=== PATIENT | female | born 1950 | race Two or more races ===

== ENCOUNTER 2018-02-24 12:21 | Emergency (ER) | payer MEDICAID ==
[~2018-02-24] VITALS: Ht 157.5 cm; Wt 76.4 kg
[2018-02-24 12:56] VITALS: BP 159/90
[2018-02-24] MEDS ORDERED: pseudoephedrine 30mg tablet PO ONE (13:40)
== END 2018-02-24 14:04 | disposition home or self-care (01) ==
LOC: ER 12:21
DX: J06.9 Acute upper respiratory infection, unspecified (principal); Z56.0 Unemployment, unspecified
CPT/HCPCS: 99282

== ENCOUNTER 2019-03-07 14:22 | Emergency (ER) | payer MEDICARE, MEDICAID ==
[~2019-03-07] VITALS: Ht 157.5 cm; Wt 79.5 kg
[2019-03-07 14:50] VITALS: BP 157/76
[2019-03-07] MEDS ORDERED: BENZ-16 PO (15:22)
[2019-03-07] MEDS ORDERED: AZIT250T PO (15:22)
--- NOTE | 2019-03-07 15:27 | NUR ---
Pt seen, assessed and treated by provider. Discharge performed by RN.
== END 2019-03-07 15:34 | disposition home or self-care (01) ==
LOC: ER 14:22
DX: J06.9 Acute upper respiratory infection, unspecified (principal); Z56.0 Unemployment, unspecified; Z79.899 Other long term (current) drug therapy
CPT/HCPCS: 99283

== ENCOUNTER 2024-02-05 13:29 | Inpatient (IN) | payer MEDICARE, MEDICAID ==
[~2024-02-05] VITALS: Ht 157.5 cm; Wt 69.1 kg
[~2024-02-05 13:29] MED LIST: AZIT250T PO; PANT20TA18 PO
[2024-02-05 14:00] LABS: BASOPHILS # (AUTO) 0.1 X10'3 (0-0.2); BASOPHILS % (AUTO) 0.8 % (0-1); EOSINOPHILS # (AUTO) 0.5 X10'3 (0-0.9); EOSINOPHILS % (AUTO) 6.5 % (0-6); HEMATOCRIT 37.5 % (35.0-45.0); LYMPHOCYTES % (AUTO) 13.3 % (21-51); MEAN CORPUSCULAR HEMOGLOBIN 27.1 PG (27.0-31.0); MEAN CORPUSCULAR VOLUME 84.6 FL (78-98); MEAN PLATELET VOLUME 7.7 FL (7.4-10.4); MONOCYTES # (AUTO) 0.7 X10'3 (0-0.9); MONOCYTES % (AUTO) 9.4 % (2-12); NEUTROPHILS # (AUTO) 5.5 X10'3 (1.8-7.7); PLATELET COUNT 297 X10'3 (140-440); RED BLOOD COUNT 4.43 X10'6 (4.20-5.60); RED CELL DISTRIBUTION WIDTH 14.4 % (11.5-14.5); WHITE BLOOD COUNT 7.9 X10'3 (4.5-11.0)
[2024-02-05 14:37] LABS: ALBUMIN 3.7 G/DL (3.4-5.0); ANION GAP 4 (8-16); BLOOD UREA NITROGEN 15 MG/DL (7-18); BUN/CREATININE RATIO 16.3 (10.0-20.0); CALCIUM 8.5 MG/DL (8.5-10.1); CHLORIDE 103 MMOL/L (99-107); CREATININE 0.92 MG/DL (0.40-0.90); GLUCOSE 113 MG/DL (70-104); PRO BRAIN NATRIURETIC PEPTIDE 155 PG/ML (0-125); SODIUM 138 MMOL/L (135-145); TOTAL CARBON DIOXIDE 30.9 MMOL/L (24-32); eCRCL 44 ML/MIN; eGFR 60 ML/MIN
[2024-02-05 15:35] VITALS: PULSE 87; RESP 25; O2SAT 92
[2024-02-05] MEDS: ipratropium/albuterol 3ml nebule NEB STA (15:35)
[2024-02-05 15:40] VITALS: PULSE 86; RESP 18
[2024-02-05] MEDS: dexamethasone sod phosphate 10mg/ml inj IM STA (16:29)
[2024-02-05] MEDS ORDERED: acetaminophen 325mg tablet PO PRN ×2 (17:50)
[2024-02-05] MEDS ORDERED: morphine 2 MG/ML inj. syringe IV PRN (17:50)
[2024-02-05] MEDS ORDERED: magnesium Cl slow-release 64mg tablet PO PRN (17:50)
[2024-02-05] MEDS ORDERED: potassium Cl 40MEQ/1/2NS 520ml 520 ML IV PRN (17:50)
[2024-02-05] MEDS ORDERED: HYDROcodone/acetaminophen 5mg/325mg tablet PO PRN (17:50)
[2024-02-05] MEDS ORDERED: magnesium sulf-water 4G/100mL 100 ML IV PRN (17:50)
[2024-02-05] MEDS ORDERED: potassium Cl 20 mEq SR tablet PO PRN ×2 (17:50)
[2024-02-05] MEDS ORDERED: magnesium sulf-water 2g/50mL 50 ML IV PRN (17:50)
[2024-02-05] MEDS ORDERED: ondansetron/PF 4mg/2ml inj IV PRN (17:50)
[2024-02-05] MEDS: ipratropium/albuterol 3ml nebule NEB PRN (17:55)
[2024-02-05 17:56] VITALS: PULSE 80; RESP 22; O2SAT 93
[2024-02-05 18:06] VITALS: PULSE 84; RESP 18
[2024-02-05] MEDS ORDERED: iohexol 300mg/ml 100ml inj. ONE (18:21)
[2024-02-05 18:59] LABS: D-DIMER 1.59 MG/L FEU (0-0.50)
[2024-02-05] MEDS: methylPREDNISolone sod succ 125mg/2ml vial IV SCH (19:30)
[2024-02-05] MEDS: albuterol 2.5 MG/3 ML nebule NEB SCH (19:30)
[2024-02-05] MEDS: CefTRIAXone 2gm/D5W 50ml BAG 50 ML IV SCH (19:31)
[2024-02-05 19:34] LABS: ABG BASE EXCESS 2.4 mmol/L (-2.0-3.0); ABG HCO3 26.2 mmol/L (21.0-28.0); ABG OXYGEN SATURATION 94.5 % (94.0-98.0); ABG PCO2 (T) 38.2 mmHg (32.0-45.0); ABG PH (T) 7.455 (7.350-7.450); ALLEN'S TEST POSITIVE; FCOHb 0.3 % (0.5-1.5); FHHb 5.5 % (0.0-5.0); FLOW 3 L/min; FMetHb 0.1 % (0.0-1.5); FO2Hb 94.1 % (94.0-98.0); MODE NASAL CANNULA; PATIENT TEMPERATURE 37.3; TOTAL HEMOGLOBIN 12.5 G/dl (12.0-16.0)
[2024-02-05] MEDS: heparin, porcine 5000 units/ml vial SQ SCH (20:30)
[2024-02-05 22:00] VITALS: BP 129/58; PULSE 71; RESP 20; TEMP 97.9; O2SAT 92
[2024-02-05 23:00] VITALS: RESP 20; O2SAT 92
[2024-02-06] VITALS (15 sets, daily range): BP systolic 136–153; BP diastolic 49–71; PULSE 73–90; RESP 18–21; TEMP 97.7–100; O2SAT 92–99
[2024-02-06] MEDS ORDERED: albuterol 2.5 MG/3 ML nebule NEB PRN (06:05)
[2024-02-06 07:14] LABS: BASOPHILS % (AUTO) 0.3 % (0-1); EOSINOPHILS % (AUTO) 0 % (0-6); HEMATOCRIT 35.9 % (35.0-45.0); HEMOGLOBIN 11.7 g/dl (12.0-16.0); LYMPHOCYTES # (AUTO) 0.5 X10'3 (1.1-4.8); LYMPHOCYTES % (AUTO) 7.6 % (21-51); MEAN CORPUSCULAR HEMOGLOBIN 27.5 PG (27.0-31.0); MEAN CORPUSCULAR HGB CONC 32.5 g/dL (33.0-36.5); MEAN CORPUSCULAR VOLUME 84.6 FL (78-98); MEAN PLATELET VOLUME 8.3 FL (7.4-10.4); MONOCYTES # (AUTO) 0.1 X10'3 (0-0.9); MONOCYTES % (AUTO) 2.1 % (2-12); NEUTROPHILS # (AUTO) 6.3 X10'3 (1.8-7.7); PLATELET COUNT 311 X10'3 (140-440); RED BLOOD COUNT 4.25 X10'6 (4.20-5.60); RED CELL DISTRIBUTION WIDTH 14.3 % (11.5-14.5)
[2024-02-06 07:55] LABS: ALANINE AMINOTRANSFERASE 14 U/L (12-78); ALBUMIN 3.4 G/DL (3.4-5.0); ALBUMIN/GLOBULIN RATIO 0.8 (1.1-1.5); ALKALINE PHOSPHATASE 104 IU/L (46-116); ANION GAP 6 (8-16); ASPARTATE AMINO TRANSFERASE 8 U/L (10-37); BILIRUBIN,TOTAL 0.5 MG/DL (0.1-1.0); BLOOD UREA NITROGEN 18 MG/DL (7-18); BUN/CREATININE RATIO 23.7 (10.0-20.0); CALCIUM 8.8 MG/DL (8.5-10.1); CHLORIDE 104 MMOL/L (99-107); CREATININE 0.76 MG/DL (0.40-0.90); GLUCOSE 139 MG/DL (70-104); POTASSIUM 4.7 MMOL/L (3.5-5.1); SODIUM 140 MMOL/L (135-145); TOTAL PROTEIN 7.8 G/DL (6.4-8.2); eCRCL 53 ML/MIN; eGFR 75 ML/MIN
[2024-02-06] MEDS: pantoprazole 40mg Tablet.DR PO SCH (08:39)
[2024-02-06] MEDS ORDERED: FLU VACC TS2024-25(6MOS UP)/PF 45 MCG/0.5 ML SYRINGE IMVAC ONE (09:20)
[2024-02-06] MEDS: guaiFENesin ER 600mg tablet PO SCH (13:37)
[2024-02-06] MEDS: albuterol 2.5 MG/3 ML nebule NEB SCH (15:27)
[2024-02-06] MEDS: CefTRIAXone 2gm/D5W 50ml BAG 50 ML IV SCH (20:25)
[2024-02-06] MEDS: methylPREDNISolone sod succ/PF 40mg inj. IV SCH (20:30)
[2024-02-07] VITALS (16 sets, daily range): BP systolic 127–157; BP diastolic 50–97; PULSE 69–90; RESP 15–26; TEMP 97.2–98.6; O2SAT 90–96
[2024-02-07 06:21] LABS: BASOPHILS % (AUTO) 0.2 % (0-1); EOSINOPHILS % (AUTO) 0 % (0-6); HEMATOCRIT 37.8 % (35.0-45.0); LYMPHOCYTES # (AUTO) 0.8 X10'3 (1.1-4.8); LYMPHOCYTES % (AUTO) 5.4 % (21-51); MEAN CORPUSCULAR HGB CONC 31.7 g/dL (33.0-36.5); MEAN CORPUSCULAR VOLUME 85.3 FL (78-98); MEAN PLATELET VOLUME 8.7 FL (7.4-10.4); MONOCYTES # (AUTO) 0.6 X10'3 (0-0.9); MONOCYTES % (AUTO) 4.4 % (2-12); NEUTROPHILS # (AUTO) 13.1 X10'3 (1.8-7.7); PLATELET COUNT 326 X10'3 (140-440); RED BLOOD COUNT 4.43 X10'6 (4.20-5.60); RED CELL DISTRIBUTION WIDTH 14.7 % (11.5-14.5); WHITE BLOOD COUNT 14.5 X10'3 (4.5-11.0)
[2024-02-07 06:48] LABS: ALANINE AMINOTRANSFERASE 16 U/L (12-78); ALBUMIN 3.4 G/DL (3.4-5.0); ALBUMIN/GLOBULIN RATIO 0.8 (1.1-1.5); ALKALINE PHOSPHATASE 103 IU/L (46-116); ANION GAP 6 (8-16); ASPARTATE AMINO TRANSFERASE 12 U/L (10-37); BILIRUBIN,TOTAL 0.1 MG/DL (0.1-1.0); BLOOD UREA NITROGEN 23 MG/DL (7-18); BUN/CREATININE RATIO 31.1 (10.0-20.0); CALCIUM 9.1 MG/DL (8.5-10.1); CHLORIDE 105 MMOL/L (99-107); CREATININE 0.74 MG/DL (0.40-0.90); GLUCOSE 135 MG/DL (70-104); POTASSIUM 4.9 MMOL/L (3.5-5.1); SODIUM 142 MMOL/L (135-145); TOTAL PROTEIN 7.9 G/DL (6.4-8.2); eCRCL 54 ML/MIN; eGFR 77 ML/MIN
[2024-02-07] MEDS ORDERED: ipratropium/albuterol 3ml nebule NEB PRN (10:25)
[2024-02-07] MEDS ORDERED: PERFLUTREN PROTEIN-A MICROSPHR (Optison) 0.22 MG/ML 3ML VIAL IV ONE (10:25)
[2024-02-07] MEDS: ipratropium/albuterol 3ml nebule NEB SCH (11:00)
[2024-02-08] VITALS (13 sets, daily range): BP systolic 134–158; BP diastolic 68–77; PULSE 70–90; RESP 14–24; TEMP 97.3–98.4; O2SAT 90–98
[2024-02-08 06:57] LABS: BASOPHILS # (AUTO) 0.1 X10'3 (0-0.2); BASOPHILS % (AUTO) 0.8 % (0-1); EOSINOPHILS % (AUTO) 0.2 % (0-6); HEMATOCRIT 37.8 % (35.0-45.0); LYMPHOCYTES # (AUTO) 1.1 X10'3 (1.1-4.8); LYMPHOCYTES % (AUTO) 8.2 % (21-51); MEAN CORPUSCULAR HEMOGLOBIN 27.1 PG (27.0-31.0); MEAN CORPUSCULAR HGB CONC 31.9 g/dL (33.0-36.5); MEAN CORPUSCULAR VOLUME 84.9 FL (78-98); MEAN PLATELET VOLUME 8.2 FL (7.4-10.4); MONOCYTES # (AUTO) 0.6 X10'3 (0-0.9); MONOCYTES % (AUTO) 4.3 % (2-12); NEUTROPHILS # (AUTO) 11.4 X10'3 (1.8-7.7); NEUTROPHILS % (AUTO) 86.5 % (42-75); PLATELET COUNT 320 X10'3 (140-440); RED BLOOD COUNT 4.45 X10'6 (4.20-5.60); RED CELL DISTRIBUTION WIDTH 14.2 % (11.5-14.5); WHITE BLOOD COUNT 13.2 X10'3 (4.5-11.0)
[2024-02-08 07:13] LABS: ALANINE AMINOTRANSFERASE 16 U/L (12-78); ALBUMIN 3.4 G/DL (3.4-5.0); ALBUMIN/GLOBULIN RATIO 0.8 (1.1-1.5); ALKALINE PHOSPHATASE 97 IU/L (46-116); ANION GAP 6 (8-16); ASPARTATE AMINO TRANSFERASE 11 U/L (10-37); BILIRUBIN,TOTAL 0.2 MG/DL (0.1-1.0); BLOOD UREA NITROGEN 29 MG/DL (7-18); BUN/CREATININE RATIO 40.8 (10.0-20.0); CALCIUM 9.1 MG/DL (8.5-10.1); CHLORIDE 102 MMOL/L (99-107); CREATININE 0.71 MG/DL (0.40-0.90); GLUCOSE 115 MG/DL (70-104); POTASSIUM 4.7 MMOL/L (3.5-5.1); SODIUM 140 MMOL/L (135-145); TOTAL CARBON DIOXIDE 32.3 MMOL/L (24-32); TOTAL PROTEIN 7.8 G/DL (6.4-8.2); eCRCL 57 ML/MIN; eGFR 81 ML/MIN
[2024-02-08] MEDS ORDERED: BUDE10.22 INH (11:42)
[2024-02-08] MEDS ORDERED: PRED10TA23 PO (11:42)
[2024-02-08] MEDS ORDERED: CEFI400C4 PO (11:42)
[2024-02-08] MEDS ORDERED: GUAI237S56 PO (11:42)
[2024-02-08] MEDS ORDERED: ALBU8HFA INH (11:42)
== END 2024-02-08 17:34 | disposition home or self-care (01) | DRG 189 ==
LOC: ER 13:30 → ED HOLD 17:55 → PCU 3S 21:47
PROVIDERS: ADMIT Internal Medicine; ATTEND Internal Medicine
DX: J96.01 Acute respiratory failure with hypoxia (principal); J44.1 Chronic obstructive pulmonary disease with (acute) exacerbation; J44.0 Chronic obstructive pulmonary disease with (acute) lower respiratory infection; Z20.822 Contact with and (suspected) exposure to COVID-19; J20.9 Acute bronchitis, unspecified; Z79.899 Other long term (current) drug therapy; Z23 Encounter for immunization
CPT/HCPCS: 36415; 36600; 71046; 71260; 80048; 80053; 82803; 82948; 83605; 83880; 84145; 84484; 85018; 85025; 85379; 85651; 87040; 87502; 87503; 87811; 90686; 93005; 93306; 94640; 94664; 94668; 94760; 96372; 99285; G0378; J0696; J1100; J1644; J2919; J7030; J7040; Q9967

== ENCOUNTER 2024-03-06 08:38 | Outpatient (CLI) | payer MEDICARE, MEDICAID ==
[~2024-03-06 08:38] MED LIST changes: +ALBU8HFA INH; -AZIT250T PO; +BUDE10.22 INH; +CEFI400C4 PO; +GUAI237S56 PO; -PANT20TA18 PO; +PRED10TA23 PO
[2024-03-06 09:14] VITALS: PULSE 83; RESP 16; O2SAT 81
== END 2024-03-06 23:59 | disposition home or self-care (01) ==
LOC: RT 08:38
PROVIDERS: ATTEND General Practice
DX: J44.1 Chronic obstructive pulmonary disease with (acute) exacerbation (principal)
CPT/HCPCS: 94010; 94760

== ENCOUNTER 2024-07-30 13:44 | Emergency (ER) | payer MEDICARE, MEDICAID ==
[~2024-07-30] VITALS: Ht 157.5 cm; Wt 79.5 kg
[~2024-07-30 13:44] MED LIST changes: -ALBU8HFA INH; -PRED10TA23 PO
[2024-07-30 13:46] VITALS: BP 144/70; PULSE 103; RESP 16; O2SAT 99
--- NOTE | 2024-07-30 14:19 | RADIOLOGY REPORT ---
EXAM: DI KNEE, COMP 4 VW MIN INDICATION: right knee pain TECHNIQUE: 3 views of the right knee COMPARISON: None FINDINGS/IMPRESSION: No radiographic evidence of an acute osseous abnormality. There is no acute fracture, osseous malalig nment, or aggressive focal osseous lesion. Small knee joint effusion.
--- NOTE | 2024-07-30 17:05 | Physician Documentation ---
History of Present Illness ~ Chief Complaint: Knee Pain Stated Complaint: R LEG PAIN Time Seen by MD: 14:56 Primary Medical Doctor: Javier Source: patient, RN/ HPI Patient is seen today with complaints of right-sided knee pain. Patient states this occurred while she was walking across the street and she turned to look or say something and she felt and heard a pop in her right knee and had immediate pain and now she states her right knee is painful and feels unsteady. Patient h as no other concern or complaint at this time. Tetanus witin 5 years: No Medication Reconciliation Allergies: Coded Allergies: No Known Allergies (Unverified , 07/30/24) Scheduled Budesonide/Formoterol Fumarate (Symbicort 80-4.5 Mcg Inhaler), 2 PUFFS INH Q12H Cefixime (Cefixime), 1 CAP PO BID Guaifenesin/Dextromethorphan (Guaifenesin Dm Syrup), 5 ML PO Q8H Past Medical History Past Medical History: No Pertinent History, UTI Past Surgical History: noncontributory, Alcohol Use: None Lives In: Home, Other Occupation: unemployed Review of Systems Constitutional: Denies: chills, fever, weakness Eyes: Denies: pain, blurred vision ENT: Denies: ear pain, nose pain, throat pain, mouth pain Respiratory: Denies: cough, shortness of breath Cardiovascular: Denies: chest pain, palpitations Gastrointestinal: Denies: abdominal pain, nausea, vomiting Genitourinary: Denies: burning, dysuria Female Genitalia: Denies: vaginal discharge, pelvic pain Neurological: Denies: headache, dizziness Musculoskeletal: Denies: pain, swelling Integumentary: Denies: rash, lesions Allergic/Immunologic: Denies: hives, itching Hematologic/Lymphatic: Denies: no symptoms reported Psychiatric: Denies: depression, anxiety Physical Exam Vital Signs: Temperature: 97.5, Heart Rate: 103, Respiratory Rate: 16, BP: 144/ 70, Pulse Oximetry: 99, Weight: 79.550 Oxygen Flow Rate: 0 Physical Exam General: Awake and Alert, no acute distress. HEENT: Conjunctiva pink, Sclera clear, Mucus Membranes moist. Neck: Supple without masses and tenderness. Resp: Unlabored. Lungs clear to auscultation bilaterally. Heart: Regular Rate and rhythm, normal S1 and S2 without murmur, rub or gallop. Musculoskeletal: On exam patient has no pain elicited when stressing through the MCL or LCL joints. Patient has mild swelling of the right knee and has a mildly positive Ashlee's test with the pain elicited with Ashlee's test on the right knee only and no pain of the left knee and negative Ashlee's on the left knee. Extremities: No cyanosis,clubbing or edema. Skin: Warm and Dry. Progress Results/Orders Results/Orders Orders - TRENTON SALVADOR PAC Knee, Complete (07/30/24 14:00) Completed Orders - TRENTON SALVADOR PAC Knee, Complete (07/30/24 14:00) Vital Signs 07/30/24 13:46 Temp 97.5 Pulse 103 Resp 16 B/P (MAP) 144/70 Pulse Ox 99 O2 Flow Rate 0 EKG/XRAY/CT/US/VASC/MRI Bone/Soft Tissue X-Ray (Ext.) : Additional Comment X-ray of right knee interpreted by myself today shows no sign of acute fracture, bones in anatomic alignment, small joint effusion. DIAGNOSTIC RADIOLOGY Patient: KENDY FLORENCE Medical Record: [id number] [facility] : 1950, Age: 74 Sex: Female Location: ER Patient Status: REG ER Service Date/Time: 07/30/241399 Ordering Physician: TRENTON SALVADOR PAC Exam: KNEE, COMP 4 VW MIN EXAM: DI KNEE, COMP 4 VW MIN INDICATION: right knee pain TECHNIQUE: 3 views of the right knee COMPARISON: None FINDINGS/IMPRESSION: No radiographic evidence of an acute osseous abnormality. There is no acute fracture, osseous malalignment, or aggressive focal osseous lesion. Small knee joint effusion. Electronically Signed by:ALLISON GUERRIER MD Date & Time: 07/30/24 1417 Dictated by: ALLISON GUERRIER MD Dictation date and time: 07/30/24 1355 Primary Care Provider: NO PRIMARY CARE PROVIDER cc: TRENTON SALVADOR ~ Medical Decision Making Findings Patient is seen today with complaints of right-sided knee pain. Patient states this occurred while she was walking across the street and she turned to look or say something and she felt and heard a pop in her right knee and had immediate pain and now she states her right knee is painful and feels unsteady. Patient has no other concern or complaint at this time. X-ray of right knee shows no sign of acute fracture, I strongly recommend patient follow up with primary care provider as soon as possible for referral for MRI of the right knee to evaluate for ACL tear. Patient voiced understanding. Patient will take Tylenol ibuprofen as needed for symptomatic relief. Patient will return to ED with any worsening, concerning or changing symptoms. Departure Disposition: 01 HOME / SELF CARE / HOMELESS Impression: Primary Impression: Knee pain Qualified Codes: M25.561 - Pain in right knee Condition: Stable Discharge Instructions: Acute Knee Pain, Adult Additional Instructions: X-ray of right knee shows no sign of acute fracture, I strongly recommend patient follow up with primary care provider as soon as possible for referral for MRI of the right knee to evaluate for ACL tear. Patient voiced understanding. Patient will take Tylenol ibuprofen as needed for symptomatic relief. Patient will return to ED with any worsening, concerning or changing symptoms. Referrals: NO PRIMARY CARE PROVIDER (PCP) Signature Scribe Signature: No scribe Attestation: No scribe TRENTON SALVADOR Jul 30, 2024 17:05
[2024-07-30] MEDS: ibuprofen tablet 400 MG TABLET PO ONE (17:36)
[2024-07-30 17:40] VITALS: TEMP 97.5
== END 2024-07-30 17:42 | disposition home or self-care (01) ==
LOC: ER 13:45
DX: M25.561 Pain in right knee (principal)
CPT/HCPCS: 73564; 99283; A6449